=== PATIENT | female | born 1950 | race Caucasian/White ===

== ENCOUNTER → 2018-05-27 12:43 | Outpatient (BNVA) | payer MEDICARE, MEDICAID, SELFPAY | PROVIDERS: Visit Provider Internal Medicine Cardiovascular Disease | DX: R94.39 Abnormal result of other cardiovascular function study (principal); J44.9 Chronic obstructive pulmonary disease, unspecified; R06.09 Other forms of dyspnea ==

== ENCOUNTER 2019-05-12 09:27 | Outpatient (REF) | payer MEDICARE, MEDICAID, SELFPAY ==
[2019-05-12 18:43] LABS: HCT 37.6 % (36.0-46.0); HGB 12.5 g/dL (12.0-15.5); Mean Corp. HGB Concentration 33.2 g/dL (32.0-36.0); Mean Corpuscular Hemoglobin 30.3 pg (27.0-33.0); Mean Platelet Volume 12.1 fL (8.0-11.0); Platelet Count 245 x1000/uL (130-400); RBC 4.13 m/cumm (4.00-5.20); RBC Distribution Width 11.7 % (11.7-14.6); White Blood Cell Count 6.92 k/cumm (4.4-10.8)
[2019-05-12 19:12] LABS: Calculated LDL 86 mg/dL; Cholesterol 152 mg/dL (50-200); HDL Cholesterol 42 mg/dL (40-60); Triglyceride 120 mg/dL (30-150); Vitamin B12 1010 pg/mL (193-986)
[2019-05-12 19:25] LABS: Iron 46 ug/dL (50-175)
== END 2019-05-12 09:47 ==
LOC: NCHCN 09:27
PROVIDERS: PCP Nurse Practitioner Family; Visit Provider Nurse Practitioner Family
DX: D64.9 Anemia, unspecified (principal); E78.5 Hyperlipidemia, unspecified; R73.9 Hyperglycemia, unspecified
CPT/HCPCS: 80061; 85027; 82607; 83540

== ENCOUNTER 2020-05-30 09:03 | Outpatient (REF) | payer MEDICARE, MEDICAID, SELFPAY ==
[2020-05-30 21:30] LABS: HCT 39.7 % (36.0-46.0); MCH 30.5 pg (27.0-33.0); MCHC 32.7 % (32.0-36.0); MCV 93.2 fL (80-95); MPV 13.2 fL (8.0-11.0); RBC 4.26 10^6/uL (3.93-5.22); RDW 11.5 % (11.7-14.6); RDW-SD 38.8 fL; WBC 5.86 10^3/uL (4.4-10.8)
[2020-05-30 21:42] LABS: Iron 85 ug/dL (50-170); Total Iron Binding Capacity 370 ug/dL (250-450); Transferrin Sat 23 % (15-50)
[2020-05-30 22:02] LABS: Platelet Count 207 10^3/uL (130-400)
[2020-05-30 22:16] LABS: Calculated LDL 99 mg/dL (<100); Cholesterol 167 mg/dL (<200); HDL Cholesterol 51 mg/dL (40-60); TSH (W/Ref FT4) 2.41 uIU/mL (0.36-3.74); Triglyceride 88 mg/dL (<150); Vitamin B12 514 pg/mL (193-986)
== END 2020-05-30 09:23 ==
LOC: NCHCN 09:03
PROVIDERS: PCP Nurse Practitioner Family; Visit Provider Nurse Practitioner Family
DX: E78.5 Hyperlipidemia, unspecified (principal); D64.9 Anemia, unspecified; R07.89 Other chest pain; Z13.820 Encounter for screening for osteoporosis
CPT/HCPCS: 80061; 82306; 85027; 82565; 82607; 83540; 83550; 84443

== ENCOUNTER 2021-05-22 12:48 | Outpatient (REF) | payer MEDICARE, MEDICAID, SELFPAY ==
[2021-05-22 21:33] LABS: Abs Immature Grans 0.01 10^3/uL (0.0-0.06); Absolute Basophil Count 0.05 10^3/uL (0.0-0.2); Absolute Eosinophil Count 0.07 10^3/uL (0.0-0.7); Absolute Lymphocyte Count 1.91 10^3/uL (1.2-3.4); Absolute Neutrophil Count 4.17 10^3/uL (1.2-6.7); Basophils % 0.7; HGB 12.8 g/dL (11.2-15.7); Immature Grans % 0.1; MCH 29.6 pg (27.0-33.0); MCV 92.6 fL (80-95); MPV 12.8 fL (8.0-11.0); Monocytes % 8.8; Neutrophils % 61.4; Nucleated RBC 0 %; Platelet Count 233 10^3/uL (130-400); RBC 4.32 10^6/uL (3.93-5.22); RDW 11.4 % (11.7-14.6); RDW-SD 38.5 fL; WBC 6.81 10^3/uL (4.4-10.8)
[2021-05-23 07:07] LABS: ALT 25 U/L (14-59); AST 26 U/L (15-37); Alkaline Phosphatase 60 U/L (46-116); BUN 11 mg/dL (7-18); Bilirubin, Total 0.4 mg/dL (0.2-1.0); CREATININE 0.8 mg/dL (0.55-1.02); Calculated LDL 133 mg/dL (<100); Chloride 106 mmol/L (98-107); Cholesterol 206 mg/dL (<200); Glucose 91 mg/dL (74-106); HDL Cholesterol 52 mg/dL (40-60); Potassium 4.3 mmol/L (3.5-5.1); Sodium 142 mmol/L (136-145); Total Protein 7.4 g/dL (6.4-8.2); Triglyceride 108 mg/dL (<150)
== END 2021-05-22 12:49 | disposition home or self-care (01) ==
LOC: NCHCN 12:48
PROVIDERS: PCP Nurse Practitioner Family; Visit Provider Nurse Practitioner Family
DX: E78.5 Hyperlipidemia, unspecified (principal); D64.9 Anemia, unspecified; I25.10 Atherosclerotic heart disease of native coronary artery without angina pectoris; Z00.00 Encounter for general adult medical examination without abnormal findings
CPT/HCPCS: 80053; 80061; 85025